=== PATIENT | male | born 1965 | race Caucasian/White ===

== ENCOUNTER 2016-12-05 08:54 | Emergency (ER) | payer BC ==
[2016-12-05 09:12] VITALS: BP 95/67
--- NOTE | 2016-12-05 11:38 | UC ---
I, Oh,Soohyun, scribed for Elgin Aleman MD on 12/05/16 at 1003 . Skin Complaint HPI - HPI Summary HPI Summary: This 51 y/o male presents to [facility] for a bee sting and right sided facial swelling since 2 days ago. Positive itchiness and intermittent subjective fever on the location. Negative chills, dental caries or pain, or SOB. Pt took Benadryl about 0830 AM this morning without much relief. Pt reports prior bee stings with inconsistent reaction involving localized swelling "it seems like it happens to my waist up". PMHx includes V-fib and HTN. R/b/a of histamine diego is discussed with pt. - History of Current Complaint Chief Complaint: UCAllergicReaction Time Seen by Provider: 12/05/16 09:46 Stated Complaint: BEE STING Hx Obtained From: Patient, Medical Records Onset/Duration: Still Present Skin Exposure Onset/Duration: Days Ago Location: Face - right sided Aggravating: Nothing Alleviating: OTC Meds - benadryl Associated Signs & Symptoms: Positive: Fever - subjective localized fever.. Negative: Difficulty Breathing - Allergy/Home Medications Allergies/Adverse Reactions: Allergies Allergy/AdvReac Type Severity Reaction Status Date / Time Onion Allergy FACIAL-THROAT Verified 12/05/16 09:04 SWELLING, RASH bee stings Allergy Severe Swelling Uncoded 12/05/16 09:04 Home Medications: Home Medications Ibuprofen TAB* [Advil TAB*] 200 mg PO Q6H PRN 12/05/16 [History Confirmed ] diPHENhydraMINE PO* [Benadryl PO 25 MG TAB*] 25 mg PO Q6H PRN 12/05/16 [History Confirmed 12/05/16] Review of Systems Constitutional: Fever - subjective fever Skin: Other - bee sting on right sided of face. Itchiness and erythema Eyes: Negative ENT: Negative Respiratory: Negative Cardiovascular: Negative Gastrointestinal: Negative Genitourinary: Negative Motor: Negative Neurovascular: Negative Musculoskeletal: Negative Neurological: Negative Psychological: Negative All Other Systems Reviewed And Are Negative: Yes PMH/Surg Hx/FS Hx/Imm Hx Cardiovascular History: Hypertension, Other - V-fib Other Cardiovascular History: V-fib Other History Of: Negative For: Anticoagulant Therapy - Surgical History Surgical History: Yes Surgery Procedure, Year, and Place: Multiple knee surgeries Right and Left knees (total of 10 surgeries). Wrist Surgery. L shoulder surgery. Appendectomy - Family History Known Family History: Positive: Cardiac Disease, Hypertension - Social History Alcohol Use: Daily Alcohol Amount: 4-5 beer Substance Use Type: None Smoking Status (MU): Never Smoked Tobacco Type: Smokeless Tobacco Amount Used/How Often: 1 CAN PER 2 DAYS X 30 YEARS Have You Smoked in the Last Year: No - Immunization History Most Recent Influenza Vaccination: Unknown Most Recent Tetanus Shot: Within 10 years Most Recent Pneumonia Vaccination: Never Physical Exam Triage Information Reviewed: Yes Vital Signs: Initial Vital Signs Temp 96.8 F 12/05/16 09:06 Pulse 78 12/05/16 09:06 Resp 16 12/05/16 09:06 BP 95/67 12/05/16 09:06 Pulse Ox 98 12/05/16 09:06 Vital Signs Reviewed: Yes - Additional Comments The patient is well-nourished in no acute distress and in no acute pain. The skin is noted with soft tissue swelling on right buccal of face. Erythema down to right sided neck. Negative fluid collection. Not hot to touch. HEENT: The head is normocephalic and atraumatic. The pupils are equal and reactive. The conjunctivae are clear and without drainage. Nares are patent and without drainage. Mouth reveals moist mucous membranes and the throat is without erythema and exudate. The external ears are intact. The ear canals are patent and without drainage. The tympanic membranes are intact. Neck is supple with full range of motion and non-tender. There are no carotid bruits. There is no neck vein distension. Respiratory: Chest is non-tender. Lungs are clear to auscultation and breath sounds are symmetrical and equal. Cardiovascular: Hear is regular rate and rhythm. There is no murmur or rub auscultated. There is no peripheral edema and pulses are symmetrical and equal. Abdomen: The abdomen is soft and non-tender. There are normal bowel sounds heard in all four quadrants and there is no organomegaly palpated. Musculoskeletal: There is no back pain noted. Extremities are non-tender with full range of motion. There is good capillary refill. There is no peripheral edema or calf tenderness elicited. Neurological: Patient is alert and oriented to person, place and time. The patient has symmetrical motor strength in all four extremities. Cranial nerves are grossly intact. Deep tendon reflexes are symmetrical and equal in all four extremities. Psychiatric: The patient has an appropriate affect and does not exhibit any anxiety or depression. Course/Dx - Course Course Of Treatment: Home med list reviewed and confirmed. Vital signs reviewed and noted with 95/67. Pt presents with a 2 day old bee sting on right side of face. Positive subjective localized fever and itchiness. Negative respiratory distress. PMHx includes V-fib, and r/b/a of histamine diego is discussed with pt. Pt expresses understanding. - Differential Diagnoses - Skin Complaint Differential Diagnoses: Local Allergic Reaction - Diagnoses Provider Diagnoses: 1) bee sting 2) Known HTN with well controlled blood pressure Discharge - Discharge Plan Condition: Stable Disposition: HOME Prescriptions: Famotidine TAB 40 MG(NF) [Pepcid TAB 40 MG(NF)] 40 mg PO DAILY #30 tab diPHENhydraMINE PO* [Benadryl PO 50 MG CAP*] 50 mg PO Q6H PRN #30 cap PRN Reason: itching predniSONE TAB* [Deltasone TAB*] 60 mg PO DAILY #15 tab Patient Education Materials: Famotidine (By mouth), Prednisone (By mouth), Diphenhydramine (By mouth), Insect Bite or Sting (ED), Ice Pack Application (ED) Referrals: Abdoul Elias MD [Primary Care Provider] - 2 Days The documentation as recorded by the Isma navarro Soohyun accurately reflects the service I personally performed and the decisions made by , Elgin Aleman MD.
== END 2016-12-05 10:18 | disposition home or self-care (01) ==
LOC: UCEAST 08:54
DX: T63.441A Toxic effect of venom of bees, accidental (unintentional), initial encounter (principal); Y92.9 Unspecified place or not applicable; I10 Essential (primary) hypertension; I49.01 Ventricular fibrillation
CPT/HCPCS: 99212; G0463

== ENCOUNTER 2016-12-13 07:04 | Emergency (ER) | payer BC ==
[2016-12-13] MEDS ORDERED: predniSONE TAB* 20 MG PO ONE (07:17)
[2016-12-13 07:22] VITALS: BP 118/81
--- NOTE | 2016-12-13 08:18 | UC ---
Pratik Quijano Aidan, scribed for Christiano Florez MD on 12/13/16 at 0727 . Allergic Reaction HPI - HPI Summary HPI Summary: 51 y/o male presents to the Urgent Care with a complaint of acute, moderate episodes of right check itchiness with associated swelling that began 9 days ago after a bee sting. He visited his PCP and was given medication that slightly alleviated his symptoms temporarily. Pt denies any difficulty breathing. Hx of HTN and [place]. Medications reviewed. - History of Current Complaint Stated Complaint: SWOLLEN FACE Time Seen by Provider: 12/13/16 07:08 Hx Obtained From: Patient Onset/Duration: Sudden Onset, Lasting Days Severity Initially: Moderate Severity Currently: Moderate Pain Intensity: 0 - no pain mentioned Pain Scale Used: 0-10 Numeric Location: Discrete @ - right cheek Character: Swelling, Pruritus Aggrevating Factor(s): Nothing - unknown Alleviating Factor(s): Nothing - unknown Associated Signs And Symptoms: Positive: Other: - swelling, redness, itchiness - Allergies/Home Medications Allergies/Adverse Reactions: Allergies Allergy/AdvReac Type Severity Reaction Status Date / Time Onion Allergy FACIAL-THROAT Verified 12/13/16 07:17 SWELLING, RASH bee stings Allergy Severe Swelling Uncoded 12/13/16 07:17 PMH/Surg Hx/FS Hx/Imm Hx Cardiovascular History: Hypertension, Myocardial Infarction Other History Of: Negative For: Anticoagulant Therapy - Surgical History Surgical History: Yes Surgery Procedure, Year, and Place: Multiple knee surgeries Right and Left knees (total of 10 surgeries). Wrist Surgery. L shoulder surgery. Appendectomy - Family History Known Family History: Positive: Cardiac Disease, Hypertension - Social History Occupation: Employed Full-time Lives: With Family Alcohol Use: Daily Alcohol Amount: 4-5 beer Substance Use Type: None Smoking Status (MU): Never Smoked Tobacco Type: Smokeless Tobacco Amount Used/How Often: 1 CAN PER 2 DAYS X 30 YEARS Have You Smoked in the Last Year: No - Immunization History Most Recent Influenza Vaccination: Unknown Most Recent Tetanus Shot: Within 10 years Most Recent Pneumonia Vaccination: Never Review of Systems Constitutional: Negative Skin: Other - and swelling at right cheek Eyes: Negative ENT: Negative Respiratory: Negative Cardiovascular: Negative Gastrointestinal: Negative Genitourinary: Negative Motor: Negative Neurovascular: Negative Musculoskeletal: Negative Neurological: Negative Psychological: Negative All Other Systems Reviewed And Are Negative: Yes Physical Exam Triage Information Reviewed: Yes Appearance: Well-Appearing, No Pain Distress Vital Signs: Initial Vital Signs Temp 97.4 F 12/13/16 07:09 Pulse 69 12/13/16 07:09 Resp 16 12/13/16 07:09 BP 118/81 12/13/16 07:09 Pulse Ox 96 12/13/16 07:09 Vital Signs Reviewed: Yes Eye Exam: Normal Eyes: Positive: Other: - EOMI, PERRL ENT Exam: Normal Neck exam: Normal Neck: Positive: Supple, Other: - pharynx clear Respiratory Exam: Normal Respiratory: Positive: Other: - CTA, breath sounds present Cardiovascular: Positive: RRR Abdomen Description: Positive: Nontender, Soft Bowel Sounds: Positive: Present Musculoskeletal Exam: Normal Neurological Exam: Normal Neurological: Positive: Alert, Muscle Tone Normal Psychological Exam: Normal Psychological: Positive: Age Appropriate Behavior Skin Exam: Normal Skin: Positive: Other - punctate scab on the right cheek, right cheek swelling with minimal swelling down the right side of the neck, posterior pharynx is open and clear Allergic Reaction Course/Dx - Course Course Of Treatment: 51 y/o male presents with right cheek swelling and itchiness. Medications reviewed. - Differential Dx/Diagnosis Provider Diagnoses: Localized allergic reaction from bee sting, right face/neck. Discharge - Discharge Plan Condition: Stable Disposition: HOME Prescriptions: Famotidine TAB 40 MG(NF) [Pepcid TAB 40 MG(NF)] 40 mg PO DAILY #30 tab diPHENhydraMINE PO* [Benadryl PO 50 MG CAP*] 50 mg PO Q6H PRN #30 cap PRN Reason: itching predniSONE TAB* [Deltasone TAB*] 60 mg PO DAILY #15 tab Patient Education Materials: General Allergic Reaction (ED) Referrals: Abdoul Elias MD [Primary Care Provider] - Additional Instructions: FOLLOW UP WITH YOUR DOCTOR. GO TO THE EMERGENCY DEPARTMENT FOR ANY WORSENING OF YOUR CONDITION OR QUESTIONS OR CONCERNS. The documentation as recorded by the Pratik navarro Aidan accurately reflects the service I personally performed and the decisions made by me, Christiano Florez MD.
== END 2016-12-13 07:31 | disposition home or self-care (01) ==
LOC: UCEAST 07:04
DX: T63.441A Toxic effect of venom of bees, accidental (unintentional), initial encounter (principal); L29.8 Other pruritus; Y92.9 Unspecified place or not applicable; I10 Essential (primary) hypertension; I25.2 Old myocardial infarction; F17.220 Nicotine dependence, chewing tobacco, uncomplicated
CPT/HCPCS: 99212; G0463; J7512